=== PATIENT | female | born 1935 | race Caucasian/White ===

== ENCOUNTER 2020-02-20 00:39 | Inpatient (IN) ==
[2020-02-20] MEDS ORDERED: ONDANSETRON 4 MG/2 ML VIAL IV ONE (00:51)
[2020-02-20] MEDS ORDERED: DIPHTHERIA/TETANUS ADULT VACCINE 0.5 ML SYRINGE IM ONE (00:51)
[2020-02-20] MEDS ORDERED: MORPHINE 4 MG/1 ML VIAL IV STA ×2 (00:51→02:07)
[2020-02-20 01:19] LABS: Basophils % 0.5 % (0.0-0.8); Eosinophils # 0.1 10*3/uL (0.0-0.87); Eosinophils % 2.1 % (0.00-10.9); Hematocrit 39.4 VOL% (35.7-47.0); Hemoglobin 13.1 GM/DL (12.0-16.0); Immature Granulocytes % 0.2 %; Immature Granulocytes Absolute 0.01 #; Lymphocytes # 1.8 10*3/uL (1.4-4.0); Lymphocytes % 41.6 % (21.3-54.2); Mean Corpuscular HGB Conc 33.2 GM/DL (32-36); Mean Corpuscular Volume 106.2 FL (87-102); Neutrophils % 46.6 % (38.7-73.9); Platelet Count 157 T/CUMM (130-400); Red Blood Count 3.71 MC/CUMM (3.8-5.5); Red Cell Distribution Width 13.1 % (9.3-17.3); White Blood Count 4.2 T/CUMM (4-12)
[2020-02-20] MEDS ORDERED: ceFAZolin 2,000 MG in SODIUM CHLORIDE 0.9% 100 ML IV STA (02:12)
[2020-02-20] MEDS ORDERED: MORPHINE 4 MG/1 ML VIAL IV PRN (02:17)
[2020-02-20] MEDS ORDERED: ceFAZolin 1,000 MG VIAL ONE ×2 (02:25→15:41)
[2020-02-20 03:09] LABS: Alanine Aminotransferase 19 U/L (13-56); Alkaline Phosphatase 86 U/L (45-117); Aspartate Amino Transferase 16 U/L (0-37); Bilirubin,Total < 0.39 MG/DL (0.2-1.0); Blood Urea Nitrogen 9 MG/DL (7-18); Calcium 8.5 MG/DL (8.5-10.1); Estimated Glom Filtration Rate 70 ML/MIN; Glucose 125 MG/DL (74-106); Osmolality,Calculated 285.8 MOS/KG (273-304); Total Protein 6.6 G/DL (6.4-8.3)
[2020-02-20] MEDS ORDERED: LORazepam 2 MG/1 ML VIAL IV PRN (04:10)
[2020-02-20 06:59] LABS: Basophils % 0.1 % (0.0-0.8); Hematocrit 40.3 VOL% (35.7-47.0); Immature Granulocytes % 0.4 %; Immature Granulocytes Absolute 0.03 #; Lymphocytes # 0.6 10*3/uL (1.4-4.0); Lymphocytes % 7.9 % (21.3-54.2); Mean Corpuscular HGB Conc 32.3 GM/DL (32-36); Mean Corpuscular Volume 107.8 FL (87-102); Mean Platelet Volume 9.3 FL (9.6-12.0); Monocytes % 9.6 % (1.7-12.7); Platelet Count 136 T/CUMM (130-400); Red Blood Count 3.74 MC/CUMM (3.8-5.5); Red Cell Distribution Width 13.1 % (9.3-17.3); White Blood Count 7.9 T/CUMM (4-12)
[2020-02-20 07:11] LABS: INR 0.9; PT Patient Result 10.2 SECS (9.6-12.2)
[2020-02-20] MEDS: HYDROmorphone 2 MG/1 ML VIAL IV PRN ×2 (08:41→21:26)
[2020-02-20] MEDS: ceFAZolin 2,000 MG in PREMIX 1 EACH IV SCH ×2 (11:56→18:51)
[2020-02-20] MEDS ORDERED: BUPIVACAINE SPINAL 0.75% 2 ML AMP SPINAL ONE ×2 (15:04→15:07)
[2020-02-20] MEDS ORDERED: propofoL 200 MG/20 ML VIAL IV ONE (16:33)
[2020-02-20] MEDS ORDERED: ePHEDrine 50 MG/ML AMP ONE (16:33)
[2020-02-20] MEDS ORDERED: fentaNYL 100 MCG/2 ML VIAL ONE (16:33)
[2020-02-20] MEDS ORDERED: ONDANSETRON 4 MG/2 ML VIAL ONE (16:33)
[2020-02-20] MEDS ORDERED: MIDAZOLAM 2 MG/2 ML VIAL ONE (16:33)
[2020-02-20] MEDS ORDERED: DEXMEDETOMIDINE 200 MCG/2 ML VIAL ONE (16:33)
[2020-02-20] MEDS ORDERED: KETAMINE 500 MG/10 ML VIAL ONE (16:33)
[2020-02-21] MEDS: HYDROmorphone 2 MG/1 ML VIAL IV PRN ×5 (01:23→19:38)
[2020-02-21] MEDS: ceFAZolin 2,000 MG in PREMIX 1 EACH IV SCH ×3 (01:31→17:44)
[2020-02-21 05:59] LABS: Basophils % 0.1 % (0.0-0.8); Eosinophils % 0.3 % (0.00-10.9); Hematocrit 32.2 VOL% (35.7-47.0); Hemoglobin 10.6 GM/DL (12.0-16.0); Immature Granulocytes % 0.3 %; Immature Granulocytes Absolute 0.02 #; Lymphocytes # 1.2 10*3/uL (1.4-4.0); Mean Corpuscular HGB Conc 32.9 GM/DL (32-36); Mean Corpuscular Volume 108.1 FL (87-102); Mean Platelet Volume 9.7 FL (9.6-12.0); Monocytes % 14.2 % (1.7-12.7); Neutrophils % 68.1 % (38.7-73.9); Platelet Count 140 T/CUMM (130-400); Red Blood Count 2.98 MC/CUMM (3.8-5.5); Red Cell Distribution Width 13.3 % (9.3-17.3); White Blood Count 6.8 T/CUMM (4-12)
[2020-02-21 06:22] LABS: Calcium 8.2 MG/DL (8.5-10.1); Osmolality,Calculated 278.5 MOS/KG (273-304)
[2020-02-21] MEDS: ONDANSETRON 4 MG/2 ML VIAL IV PRN ×3 (11:57→22:29)
[2020-02-21] MEDS: ASPIRIN 325 MG TABLET PO SCH (16:11)
[2020-02-22] MEDS: ceFAZolin 2,000 MG in PREMIX 1 EACH IV SCH ×2 (03:30→09:40)
[2020-02-22 06:05] LABS: Basophils % 0.1 % (0.0-0.8); Hematocrit 32.1 VOL% (35.7-47.0); Hemoglobin 10.2 GM/DL (12.0-16.0); Immature Granulocytes % 0.2 %; Immature Granulocytes Absolute 0.02 #; Lymphocytes # 1.3 10*3/uL (1.4-4.0); Lymphocytes % 16.5 % (21.3-54.2); Mean Corpuscular HGB Conc 31.8 GM/DL (32-36); Mean Corpuscular Volume 109.6 FL (87-102); Mean Platelet Volume 9.7 FL (9.6-12.0); Neutrophils % 73.2 % (38.7-73.9); Platelet Count 168 T/CUMM (130-400); Red Blood Count 2.93 MC/CUMM (3.8-5.5); Red Cell Distribution Width 13.1 % (9.3-17.3)
[2020-02-22 06:22] LABS: Calcium 8.6 MG/DL (8.5-10.1); Osmolality,Calculated 275.7 MOS/KG (273-304)
[2020-02-22] MEDS: ASPIRIN 325 MG TABLET PO SCH (09:40)
[2020-02-22 11:57] VITALS: BP 162/77
== END 2020-02-22 13:05 | disposition home or self-care (01) | DRG 492 ==
LOC: EDBD → EDUNIT# → N.ED 00:39 → N.EDINP 02:17 → SUATTDRO 02:17 → N.3E 03:37
PROVIDERS: ADMIT Internal Medicine; ATTEND Internal Medicine